=== PATIENT | female | born 1990 | race Caucasian/White ===

== ENCOUNTER 2017-03-08 22:42 | Inpatient (IN) | payer OTHER ==
[~2017-03-08] VITALS: Ht 170.2 cm; Wt 66.8 kg
--- NOTE | ~2017-03-08 | CO ---
Unit #: [id number] #: [id number] Patient: CELIA MONTOYA [id number] [facility] [address] [place], [place] [address] [id number] I MR#: [id number] NAME: CELIA MONTOYA ROOM: 326 Age: 26 Sex: F Admission Date: 03/09/2017 : 1990 Attending Physician: Mason Smyth M.D. Consultation Date: 03/11/2017 CONSULTATION REPORT REASON FOR CONSULTATION History of amphetamine abuse, benzodiazepine, marijuana, opiate abuse, depression, anxiety, and withdrawal symptoms. HISTORY OF PRESENT ILLNESS Ms. Celia Montoya is a 26-year-old white female, seen in room 326, bed 1 on 03/11/2017 at [facility]. The patient was seen for the above-mentioned complaint. The patient reported having lot of problem with the anxiety, withdrawal symptom, trouble sleeping, restlessness of her legs, feeling hot and cold sweats. The patient denied any suicidal or homicidal ideation. The patient was admitted with tricuspid valve endocarditis. PAST PSYCHIATRIC HISTORY Remarkable for history of anxiety and depression. History of substance abuse as mentioned above. PAST MEDICAL HISTORY Remarkable for history of Methicillin-resistant Staphylococcus aureus, tricuspid valve endocarditis, bacteremia, and hepatitis C. MEDICATION HISTORY At home, the patient is on no medication. The patient is currently on vancomycin, loperamide, Ultram, methocarbamol. ALLERGIES To sulfa and penicillin. FAMILY HISTORY AND SOCIAL HISTORY The patient reports that she has a good support system. No history of abuse. History of substance abuse as mentioned above. REVIEW OF SYSTEMS A complete review of systems is unremarkable except as mentioned above. MENTAL STATUS EXAMINATION The patient's vital signs; temperature 97.8, pulse 74, respirations 16, blood pressure 116/86, and oxygen saturation 100%. General appearance; the patient dressed casually, lying comfortably in bed. Attention span and concentration, fair. Speech; regular rate and coherent. Oriented in time, place, and person. Mood and affect; sad, depressed, withdrawn, and anxious. Thought process, coherent. Thought content; the patient denied any suicidal or homicidal ideation. Denied any psychotic symptom. Recent and remote memory, fair. Language, intact. Fund of knowledge, fair. Unit #: [id number] #: [id number] Patient: CELIA MONTOYA Insight and judgment, fair to slightly impaired. DIAGNOSES Psychiatric: Amphetamine use disorder, severe, F15.20; opiate use disorder, severe, F11.20; cannabis abuse disorder, fqqlhhyr-fv-halmlo, F12.20; and major depressive disorder, recurrent, severe, F33.2. Secondary diagnosis: Deferred. Medical diagnosis: Please refer to H and P. Stressors: Psychosocial stressors. ASSESSMENT AND PLAN 1. Supportive psychotherapy and psychoeducation provided to the patient. 2. Educated about benefits and side effects of medication and course and prognosis of illness. 3. Advised to continue with current medication and add Neurontin 300 mg t.i.d., Vistaril 25 mg t.i.d., Requip 1 mg at bedtime, and trazodone 75 mg at bedtime for sleep and withdrawal symptom. We will continue to follow. Please feel free to call if any questions, telephone #[phone]. Dictated by... David Membreno/reuben TD: 03/11/2017 22:36 JOB #: [id number] CONSULTATION REPORT Page 1 of 1 X Ellis Li MD X CONSULTATION REPORT
--- NOTE | ~2017-03-08 | CR72 ---
[facility] A Service of [facility] & [facility] RADIOLOGY TEXT RESULTS PATIENT: ANIKA MONTOYA LOCATION: [facility] 326- : 88 UNIT #: [id number] AGE: [address]: Libra Veliz MD SEX: F ORDER DR: [id number] [facility] [address] [facility]. [place], [place] [address] [id number] I MR#: [id number] Acc #: [id number] NAME: ANIKA MONTOYA : 1990 SEX: F STUDY DATE/TIME: 03/09/2017 00:51 UNIT: [address] ROOM: [facility] STUDY DESCRIPTION: CR Chest Single View Portable Attending Physician: Bia June M.D. Ordering Physician: Dillan Granger M.D. Primary Care Physician: Primary Care Physician No MEDICAL IMAGING REPORT This report is preliminary unless electronic signature is present EXAM Portable chest 03/09/2017 00:51 INDICATION Shortness of air, fever and cough today. FINDINGS AP portable chest was obtained. No comparison. Borderline cardiac enlargement. Soft tissue density over the midchest is presumably overlying soft tissue attenuation. There is questionable soft tissue attenuation in the left mid lung versus some mild infiltrate. No pneumothorax is seen. I would recommend followup exam with PA and lateral views of the chest with the patient's bra removed. Dictated by... Wilner Lambert Jr., M.D. THIS IS AN ELECTRONICALLY VERIFIED REPORT Wilner Lambert Jr., M.D. at 03/09/2017 7:18 PM RONI/young TD: 03/09/2017 06:20 JOB #: [id number] MEDICAL IMAGING REPORT Page 1 of 1 COPY
--- NOTE | ~2017-03-08 | CT57 ---
[facility] A Service of [facility] & [facility] RADIOLOGY TEXT RESULTS PATIENT: ANIKA MONTOYA LOCATION: [facility] 326-01 : [birth year] UNIT #: [id number] AGE: [address]: Libra Veliz MD SEX: F ORDER DR: [id number] [facility]. [place], [place] [address] [id number] I MR#: [id number] Acc #: [id number] NAME: ANIKA MONTOYA : 1990 SEX: F STUDY DATE/TIME: 03/10/2017 [facility]: [facility] STUDY DESCRIPTION: CT Chest Wo Cont Attending Physician: Mason Smyth M.D. Ordering Physician: Mason Smyth M.D. Primary Care Physician: Primary Care Physician No MEDICAL IMAGING REPORT This report is preliminary unless electronic signature is present EXAM CT chest without contrast 03/10/2017 1045 hours HISTORY 26-year-old woman complaining of chest pain, lethargy, weakness since 03/08/2017. History of cardiac disease, drug abuse. COMPARISON Chest x-ray 03/09/2017. This CT exam was performed with one or more of the following radiation dose reduction techniques: automatic exposure control, adjustment of mA and/or kV according to patient size, and iterative reconstruction. FINDINGS Images through the thoracic inlet demonstrate a mildly enlarged heterogeneous thyroid gland suggesting a multinodular goiter. Correlate with clinical symptoms. Consider followup ultrasound if warranted. Images through the chest demonstrate normal caliber aorta. There is motion artifact. Cardiac chambers and pericardium appear normal. The esophagus is unremarkable. There are small dependent bilateral pleural effusions in both lungs. There is airspace density left greater than right lung base which could represent pneumonia or atelectasis. There are patchy nodular densities in the lingular segment of the left upper lobe on image 32 measuring less than 1 cm. There is vague linear to nodular density in the right middle lobe also quite small. Findings could represent infection. No definite septic emboli are seen. Limited views through the upper abdomen demonstrate no focal liver or splenic lesions. The gallbladder is contracted and only partially imaged STS. [facility] A Service of [facility] & [facility] RADIOLOGY TEXT RESULTS PATIENT: ANIKA MONTOYA LOCATION: [facility] 326-01 : [birth year] UNIT #: [id number] AGE: [address]: Libra Veliz MD SEX: F ORDER DR: on this exam. No definite stones are seen. The gallbladder wall appears thickened likely due to its contracted state. Bone window images are negative. IMPRESSION 1. The exam is limited by the lack of intravenous contrast and respiratory motion. 2. There is small dependent bilateral pleural effusions. 3. There is bilateral airspace change left greater than right lower lobes. Findings could represent pneumonia or atelectasis. There are a few small less than 1 cm vague nodular areas in the lingula in the right middle lobe. Infection is favored. 4. No pericardial fluid. 5. Limited views through the upper abdomen demonstrate no definite acute abnormalities. The gallbladder is contracted and appears thick-walled. It is incompletely imaged. The appearance is most likely related to the contracted state. If there are any symptoms in the right upper quadrant ultrasound evaluation would be recommended. Dictated by... Tammy Bright M.D. THIS IS AN ELECTRONICALLY VERIFIED REPORT Tammy Bright M.D. at 03/10/2017 2:25 PM Parul TD: 03/10/2017 12:39 JOB #: [id number] MEDICAL IMAGING REPORT Page 1 of 1 COPY
--- NOTE | ~2017-03-08 | DS ---
Unit #: [id number] #: [id number] Patient: ANIKA MONTOYA [id number] [address] [address] [id number] I MR#: [id number] NAME: ANIKA MONTOYA ROOM: 326 Age: 26 Sex: F Admission Date: 03/09/2017 : 1990 Discharge Date: 03/14/2017 Attending Physician: Libra Veliz M.D. Primary Care Physician: No Primary Care Physician DISCHARGE SUMMARY PRINCIPAL DIAGNOSES 1. Sepsis secondary to methicillin sensitive Staph aureus tricuspid valve endocarditis. 2. Bibasilar septic pulmonary emboli, presumed methicillin sensitive Staph aureus. 3. Acute heroin withdrawal. 4. Polysubstance abuse with urine drug screen positive for benzodiazepines, amphetamines, opiates and TCAs. 5. Normocytic anemia. 6. Moderate protein malnutrition. 7. Mild systolic congestive heart failure with ejection fraction of 45% to 50%. No acute exacerbations. 8. Medical noncompliance. 9. Moderate to severe tricuspid regurgitation. CONSULTANTS Dr. Gustafson - Infections Disease. PROCEDURES 1. Two dimensional echocardiogram on March 10, 2017 with an EF of 45% to 50%. Generalized hypokinesis of the left ventricle noted. Normal diastolic filling pattern. Mildly enlarged right ventricular cavity with mildly reduced right ventricular function. Moderate to severe tricuspid regurgitation. Right ventricular systolic pressure is 36 mmHg. Moderate size non-mobile vegetation of the anterior leaflet of the tricuspid valve. 2. Chest x-ray on March 09, 2017. Soft tissue attenuation in the left mid lung versus infiltrate. 3. CT of the chest without contrast on March 10, 2017, with small dependent bilateral pleural effusions. There is bilateral airspace change, left greater than right lower lobe. Less than 1 cm vague nodular areas in the lingula, the right middle lobe concerning for pneumonia. 4. MRI of lumbar spine with and without contrast on March 11, 2017, without evidence of diskitis, osteomyelitis or epidural abscess with degenerative changes at L5-S1 and L4-L5. At L5-S1 there is moderate size extrusion with mass effect on the right greater than left lateral recess and canal stenosis. CLINICAL HISTORY/HOSPITAL COURSE Ms. Montoya is a 26-year-old female with a known history of endocarditis who presents back to our emergency department with left sided chest discomfort, nausea, vomiting, fevers, sweats and chills. She does have a cough. Chest x-ray reveals questionable pneumonia and CT scan of Unit #: [id number] #: [id number] Patient: ANIKA MONTOYA the chest with concerns of what appeared to be sepsis and pulmonary emboli. The patient was subsequently admitted. Blood cultures were then drawn and ultimately revealed methicillin sensitive Staph aureus. Two dimensional echocardiogram was also done revealing known tricuspid valve endocarditis for which patient received only partial treatment on an outpatient basis. Dr. Gustafson was consulted and the patient was maintained on appropriate antibiotics. Repeat blood culture from March 12 has remained negative. The patient's associated leukocytosis and tachycardia has resolved. She will continue Rocephin on an outpatient basis as outlined below. The patient did have some acute heroin withdrawal for which Dr. Li evaluated the patient and placed her on withdrawal protocol. This has resolved and I don't think she requires these medications on an outpatient basis. The patient was offered [facility] but she is currently refusing at this point. She will be discharged home today. DISCHARGE CONDITION Stable. DISCHARGE STATUS Discharge to home with plans for outpatient IV or IM antibiotics via short stay. DISCHARGE MEDICATIONS Rocephin 2 g IV or IM q.24 hours through April 23, 2017. DISCHARGE INSTRUCTIONS The patient was instructed to follow a regular diet, to refrain from further illicit drug use and/or tobacco use. She can increase her activity as tolerated. FOLLOWUP The patient needs followup BMP and CBC done on Mondays with results faxed to Dr. Gustafson while she is on IV and/or IM Rocephin. She should follow up in the transition clinic in approximately six weeks. Dictated by... Libra Veliz M.D. [facility]/delicia TD: 03/15/2017 11:19 JOB #: [id number] Unit #: [id number] #: [id number] Patient: ANIKA MONTOYA DISCHARGE SUMMARY Page 1 of 1 X Libra Veliz MD DISCHARGE SUMMARY
--- NOTE | ~2017-03-08 | HP ---
Unit #: [id number] #: [id number] Patient: ANIKA MONTOYA [id number] [address] [address] [id number] I MR#: [id number] NAME: ANIKA MONTOYA ROOM: 326 Age: 26 Sex: F Admission Date: 03/09/2017 : 1990 Attending Physician: Bia June M.D. Primary Care Physician: No Primary Care Physician HISTORY AND PHYSICAL CHIEF COMPLAINT Methicillin sensitive aureus tricuspid valve bacterial endocarditis with partial treatment. HISTORY This 26-year-old female, with a history of IV drug abuse, hepatitis C, is admitted for tricuspid valve endocarditis. The patient was diagnosed with methicillin sensitive Staph aureus tricuspid valve endocarditis at [facility] about three to four weeks ago. Left AMA. Was then incarcerated. Went back to [facility] 03/05/2017 for treatment. Apparently, the cultures were positive to clindamycin. The patient has an allergy to sulfa and penicillin; therefore, she was treated with IV clindamycin but I believe she left after a day or two AMA. States that over the past day she has developed left localized chest discomfort with nausea, vomiting, fever, sweats, chills. She also has a cough productive of green sputum. She presented to this emergency department afebrile with stable vital signs. She was cultured, given 2 L of saline, Zofran, Toradol, vancomycin and gentamicin. PAST MEDICAL HISTORY 1. Methicillin Staph aureus tricuspid valve endocarditis/bacteremia, admitted to [facility] about a month ago and then recently to [facility]. Please see above details. 2. Hepatitis C. 3. Admission to this facility 09/2016 for right arm cellulitis and phlebitis. 4. Excision of a tumor right ear. 5. BTL. ALLERGIES Sulfa and penicillin. HOME MEDICATIONS None. FAMILY HISTORY Diabetes. SOCIAL HISTORY The patient is somewhat homeless at present but she plans to return to her mother's home when she is clean and sober again. She smokes one half pack per day of tobacco. Does inject methamphetamines and heroin. Unit #: [id number] #: [id number] Patient: ANIKA MONTOYA REVIEW OF SYSTEMS Notable for localized tenderness left chest, cellulitis, endocarditis, hepatitis C, drug abuse, above mentioned surgeries. All other systems were reviewed and otherwise negative. PHYSICAL EXAMINATION GENERAL APPEARANCE: Pleasant, thin 26-year-old female, currently in no acute distress. VITAL SIGNS: Temperature 98.9, pulse 98, respirations 21, blood pressure 134/71. O2 saturation is 97% on room air. HEENT: Eyes PERRLA. Extraocular muscles are intact. Pharynx is benign with poor dentition. NECK: Supple without adenopathy or thyromegaly. Right TM looks to be fairly clear. CHEST: Clear. There is a localized tender subcutaneous nodule left lower chest which does not look to be red or infected. ABDOMEN: Bowel sounds are present. No hepatosplenomegaly, tenderness or masses. EXTREMITIES: Without edema. Pedal pulses are present. No splinter hemorrhages noted over the fingernail beds. DIAGNOSTIC STUDIES LABORATORY: Admission labs - hematocrit is 34.3, white blood count of 16.3, normal platelet count. One band noted. SMA-12 - glucose is 167, sodium 133, potassium 3.4, calcium 7.8, albumin 2.5, AST 66, ALT 117. Lactic acid 2.7. CARDIOVASCULAR: EKG - sinus tachycardia, rate 107. IMAGING: Chest x-ray - soft tissue density left chest, questionable atelectasis versus infiltrate left lung. Needs PA and lateral chest x-ray after bra is removed. ASSESSMENT 1. Methicillin sensitive Staph aureus tricuspid valve bacterial endocarditis, partially treated over the past month as patient left [facility]. Was last on clindamycin due to a penicillin allergy. 2. Polysubstance abuse using methamphetamines and heroin. 3. Hepatitis C with transaminitis. 4. Tender area subcutaneous tissue left chest nodule. PLANS 1. Blood cultures are pending. 2. Empiric antibiotics in the form of vancomycin and cefepime. Will monitor while cefepime is administered. 3. Obtain prior blood cultures from [facility]. 4. Medications for withdrawal. 5. Infectious disease to see. 6. Social work to see. Dictated by Bia June M.D. AML/df Unit #: [id number] #: [id number] Patient: ANIKA MONTOYA TD: 03/09/2017 05:20 JOB #: [id number] HISTORY AND PHYSICAL Page 1 of 1 X Bia June MD HISTORY AND PHYSICAL
--- NOTE | ~2017-03-08 | CO ---
Unit #: [id number] #: [id number] Patient: CELIA MONTOYA [id number] [place], [place] [address] [id number] I MR#: [id number] NAME: CELIA MONTOYA ROOM: 326 Age: 26 Sex: F Admission Date: 03/09/2017 : 1990 Attending Physician: Mason Smyth M.D. Primary Care Physician: Primary Care Physician No Consultation Date: 03/12/2017 CONSULTATION REPORT REASON FOR CONSULTATION Followup. DISCUSSION Ms. Celia Montoya is a 26-year-old female, seen in room 326, bed 1 on 03/12/2017 at [facility]. The patient diagnosed with endocarditis, reports medication is helping her. The patient was started on medication for anxiety withdrawals. The patient reports able to sleep good. Denied any suicidal or homicidal ideation. Denied any psychotic symptom. Reported decrease in restlessness. The patient was able to sleep good, compliant, cooperative. Vital signs; temperature 98.2, pulse 67, respirations 20, blood pressure 129/89, oxygen saturation 99%. MENTAL STATUS EXAMINATION General appearance; the patient dressed casually, lying comfortably in bed. Attention span and concentration, fair. Speech, regular rate and coherent. Oriented in time, place, and person. Mood and affect were labile. Thought process, coherent. Thought content, the patient denied any thoughts of harming self or others or any hallucination. Recent and remote memory, fair. Language, intact. Fund of knowledge, fair. Insight and judgment, fair to slightly impaired. DIAGNOSES Psychiatric: Opioid use disorder, severe, F11.20; amphetamine use disorder, severe, F15.20; cannabis abuse disorder, moderate, F12.20; major depressive disorder, recurrent, severe, F33.2. ASSESSMENT/PLAN 1. Supportive psychotherapy and psychoeducation provided to the patient. 2. Educated about benefits and side effects of medication and course and prognosis of illness. 3. Advised to continue with current medication. If needed, consider further adjustment of medication. Please feel free to call if any questions telephone #[phone]. Dictated by... Ellis Li M.D. DAMASO/reuben TD: 03/12/2017 21:39 JOB #: [id number] Unit #: [id number] #: [id number] Patient: CELIA MONTOYA CONSULTATION REPORT Page 1 of 1 X Ellis Li MD CONSULTATION REPORT
--- NOTE | ~2017-03-08 | MR112 ---
[facility] A Service of [facility] & [facility] RADIOLOGY TEXT RESULTS PATIENT: ANIKA MONTOYA LOCATION: [facility] 326-01 : [birth year] UNIT #: [id number] AGE: [address]: Libra Veliz MD SEX: F ORDER DR: [id number] [facility] [address] [facility] [place], [place] [address] [id number] I MR#: [id number] Acc #: [id number] NAME: ANIKA MONTOYA : 1990 SEX: F STUDY DATE/TIME: 03/11/2017 10:56 UNIT: [address] ROOM: [facility] STUDY DESCRIPTION: MR Lumbar WWo Contrast Attending Physician: Libra Veliz M.D. Ordering Physician: Otto Gustafson M.D. Primary Care Physician: No Primary Care Physician MRI CENTER REPORT This report is preliminary unless electronic signature is present. EXAM MRI of the lumbar spine with and without. HISTORY Weakness, endocarditis, left [facility] AMA yesterday and feels worse today. History of drug abuse. Concern for abscess with development of low back pain and weakness. Endocarditis and weakness started 03/08/2017 FINDINGS MRI of the lumbar spine performed prior to and following intravenous administration of 14 mL of MultiHance. 1.5T system utilized. Wet reading provided by Dr. Ben Cheng 1935 on 03/11/2017. No comparison. Subtle retrolisthesis of L5 on S1 secondary to loss of intervertebral disc height. The 4-5 and 5-1 discs are desiccated. The conus medullaris terminates at L1 level and is normal. There are tiny Schmorl nodes L1-2 level. There is nothing to suggest osteomyelitis or diskitis and following contrast administration, there is nothing to suggest epidural abscess. There is no pathologic intracanalicular enhancement. Marrow signal intensity is essentially unremarkable. At L1-2, no significant abnormality. At L2-3, mild bilateral facet degenerative change. No canal or foraminal impingement. At L3-4, moderate bilateral facet degenerative change. No canal or foraminal impingement. At L4-5, at least moderate bilateral facet degenerative change with a broad-based posterior protrusion more prominent to the left than the right of midline and resulting in mild canal stenosis with mass effect on left greater than right lateral recess expected location of the L5 roots. [facility] A Service of [facility] & [facility] RADIOLOGY TEXT RESULTS PATIENT: ANIKA MONTOYA LOCATION: [facility] 326-01 : [birth year] UNIT #: [id number] AGE: [address]: Libra Veliz MD SEX: F ORDER DR: There is no significant foraminal impingement. At L5-S1, there is approximately cxzg-at-ckrceacu facet degenerative change bilaterally with mild ligamentum flavum thickening. There is a moderate-sized extrusion central to right paramedian in location remaining contiguous with the disc. It results in mass effect on right greater than left lateral recess expected location of the S1 roots and contributes to mild to moderate canal stenosis. The extrusion measures about 1.3 cm SI dimension, 0.7 cm AP dimension, and 1.4 cm ML dimension. No drainable fluid collection is suspected. IMPRESSION 1. There is no evidence for diskitis, osteomyelitis, or epidural abscess formation. No pathologic intracanalicular enhancement is appreciated in the lumbar spine. 2. There are lumbar degenerative changes most significant appearing radiographically L5-S1, to a lesser extent L4-5. At the 5-1 level, there is a moderate-sized extrusion with mass effect on the right greater than left lateral recess and canal stenosis with measurements and details provided above. Milder disease at the 4-5 level. STAT * RESULT Dictated by... Adelaide Moore M.D. THIS IS AN ELECTRONICALLY VERIFIED REPORT Adelaide Moore M.D. at 03/13/2017 12:28 PM FLETCHER/suzi TD: 03/13/2017 09:59 JOB #: [id number] MRI CENTER REPORT Page 1 of 1 COPY
--- NOTE | ~2017-03-08 | EKG ---
PATIENT: ANIKA MONTOYA UNIT #: [id number] Ventricular Rate: 107 BPM Atrial Rate: 107 BPM P-R Interval: 128 ms QRS Duration: 76 ms Q-T Interval: 308 ms QTC Calculation(Bezet): 411 ms P Oracle: 84 degrees Calculated R Oracle: 177 degrees Calculated T Oracle: 74 degrees Diagnosis Line: Sinus tachycardia Diagnosis Line: Indeterminate axis Diagnosis Line: Nonspecific ST abnormality Diagnosis Line: Abnormal ECG Diagnosis Line: When compared with ECG of 09-FEB-2016 06:42, Diagnosis Line: Criteria for Anterior infarct are no longer Diagnosis Line: Present Diagnosis Line: Confirmed by AUTUMN ABBOTT MD ([id number]) on Diagnosis Line: 03/09/2017 1:33:26 PM INTERPRETING MD: MILENA PAUL
--- NOTE | ~2017-03-08 | CO ---
Unit #: [id number] #: [id number] Patient: CELIA MONTOYA [id number] [facility] [address] [place], [place] [address] [id number] I MR#: [id number] NAME: CELIA MONTOYA ROOM: 326 Age: 26 Sex: F Admission Date: 03/09/2017 : 1990 Attending Physician: Libra Veliz M.D. Consultation Date: 03/13/2017 CONSULTATION REPORT REASON FOR CONSULTATION Followup. DISCUSSION Ms. Celia Montoya is a 26-year-old white female, seen in room 326, bed 1 on 03/13/2017 at [facility]. The patient diagnosed with endocarditis, history of opioid abuse, amphetamine abuse, marijuana abuse, depression, and anxiety. The patient reports making progress. Sleeping good. Decrease in anxiety. The patient was somewhat guarded, paranoid, but denied any thoughts of harming self or others. The patient denied any side effects from medication. The patient's vital signs; temperature 98.9, pulse 86, respirations 18, blood pressure 197/62, oxygen saturation 99%. REVIEW OF SYSTEMS Complete review of systems unremarkable. MENTAL STATUS EXAMINATION General appearance, the patient dressed in hospital attire, lying comfortably in bed. Attention span and concentration, fair. Speech, regular rate and coherent, but slow in volume. Oriented in time, place, and person. Mood and affect were sad, dysphoric, anxious. Thought process, coherent and goal directed. Thought content, the patient denied any hallucination or any thoughts of harming self or others. Recent and remote memory, fair. Language, intact. Fund of knowledge, fair. Insight and judgment, fair to slightly impaired. DIAGNOSES Psychiatric: Opiate use disorder, severe, F11.20; amphetamine use disorder, severe, F15.20; cannabis abuse disorder, moderate, F12.20; major depressive disorder, recurrent, severe, F33.2. ASSESSMENT AND PLAN 1. Supportive psychotherapy and psychoeducation provided to the patient. 2. Educated about benefits and side effects of medication and course and prognosis of illness. 3. Advised to continue with current medication. If needed, consider further adjustment of medication. Please feel free to call if any questions, telephone #[phone]. Dictated by... Ellis Li M.D. Unit #: [id number] #: [id number] Patient: CELIA MONTOYA DAMASO/reuben TD: 03/13/2017 16:54 JOB #: [id number] CONSULTATION REPORT Page 1 of 1 X Ellis Li MD CONSULTATION REPORT
--- NOTE | ~2017-03-08 | CO ---
Unit #: [id number] #: [id number] Patient: ANIKA JONES [id number] [address] [address] [id number] I MR#: [id number] NAME: ANIKA JONES ROOM: 326 Age: 26 Sex: F Admission Date: 03/09/2017 : 1990 Attending Physician: Mason Smyth M.D. Primary Care Physician: No Primary Care Physician CONSULTATION REPORT REQUESTING PHYSICIAN Dr. June REASON FOR CONSULTATION MSSA infective endocarditis. HISTORY OF PRESENT ILLNESS Much of the information was provided from the chart as well as previous discharge summary from [facility] since patient is unable to provide much information. Ms. Jones is a 26-year-old female with a history of IV drug use, hepatitis C, who was admitted for complaints of continued chest pain for about four days. Per records, it appears that she was being treated at [facility] for MSSA endocarditis. Apparently, per the note she was on clindamycin but she had later left about two days later. I spoke with [facility] microbiology lab. Blood cultures from March 01 and March 02 are both positive, two of two sets, with MSSA. She returns now for complaints of chest pains, nausea, fevers, vomiting, productive cough. She is currently on vancomycin and cefepime and was given a dose of gent as well. PAST MEDICAL HISTORY 1. MSSA tricuspid valve endocarditis bacteremia, previously admitted to [facility] and had left AMA. 2. Hepatitis C. 3. History of arm cellulitis and phlebitis. 4. 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 ALLERGIES Sulfa and penicillin. Per patient, her reaction to penicillin is hives. HOME MEDICATIONS None. FAMILY HISTORY Diabetes. SOCIAL HISTORY The patient is currently homeless and she is a smoker as well as current IV methamphetamines and heroin user. REVIEW OF SYSTEMS All negative except for those stated in HPI. PHYSICAL EXAMINATION Unit #: [id number] #: [id number] Patient: ANIKA JONES GENERAL: Resting, lying in bed, currently in no distress. CURRENT VITAL SIGNS: Temperature 98.8, heart rate 103, respirations 18, blood pressure 98/63. HEENT: JAZZY. Normocephalic. Poor dentition. NECK: Supple. Clear to auscultation, nonlabored. ABDOMEN: Soft, nontender, positive bowel sounds. CARDIOVASCULAR: Regular rate. No edema. DIAGNOSTIC STUDIES LABORATORY: Creatinine 0.7, sodium 133, potassium 3.4, AST 66, ALT 112. Hematology - white count is 16.3, hemoglobin 11.1, platelets 248. Microbiology data - blood cultures are currently pending. IMAGING: Chest x-ray - soft tissue density over the mid chest is presumably overlying soft tissue attenuation. Some questionable soft tissue attenuation in the left mid lung versus some mild infiltrate. ASSESSMENT 1. MSSA tricuspid valve endocarditis. 2. Noncompliance. 3. IV drug user. PLANS At this point, will await further blood cultures. Will continue vancomycin. Will monitor while on cefepime closely. Currently, patient is tolerating cefepime with no problems. May be able to DC if no further positive cultures. May need a 2D echo. Will review labs from further workup from [facility]. We will discuss plan with MD. Currently, patient is clinically stable. Will continue to follow along with the patient. Dictated by... Christy Espinosa APRN for David Winston TD: 03/09/2017 10:25 JOB #: [id number] CONSULTATION REPORT Page 1 of 1 X X CONSULTATION REPORT
--- NOTE | ~2017-03-08 | CO ---
Unit #: [id number] #: [id number] Patient: CELIA MONTOYA [id number] [place], [place] [address] [id number] I MR#: [id number] NAME: CELIA MONTOYA ROOM: 326 Age: 26 Sex: F Admission Date: 03/09/2017 : 1990 Attending Physician: Libra Veliz M.D. Primary Care Physician: No Primary Care Physician Consultation Date: 03/14/2017 CONSULTATION REPORT REASON FOR CONSULTATION Followup. DISCUSSION Ms. Celia Montoya is a 26-year-old female seen in room 326 bed-1 on 03/14/17 at [facility]. Patient diagnosed with endocarditis. Has a history of opiate abuse, cannabis abuse and patient reports medication is helping her. Patient reports that she would like to followup in outpatient program. Patient denied any suicidal or homicidal ideation, denied any psychotic symptom. Vital signs - 99.3, 104, 18, blood pressure 95/64. Oxygen saturation 100%. MENTAL STATUS EXAMINATION GENERAL APPEARANCE: Patient dressed casually, lying comfortably in bed. Attention span and concentration fair. Speech - regular rate, coherent. Oriented in time, place and person. Mood and affect sad, dysphoric. Thought process coherent. Thought content - patient denied any suicidal or homicidal ideation, denied any psychotic symptoms. Recent and remote memory fair. Language intact. Fund of knowledge fair. Insight and judgment fair to slightly impaired. DIAGNOSIS PSYCHIATRIC: 1. Opiate use disorder, severe - F11.20. 2. Cannabis abuse disorder, moderate - F12.20. 3. Major depressive disorder, recurrent, severe - F33.0. ASSESSMENT/PLAN 1. Supportive psychotherapy and psychoeducation provided to patient. 2. Educated about benefits and side effects of medications and course and prognosis of illness. 3. Advised to continue with current medications. If needed, consider further additional medication and advised patient to follow up in [facility] program upon discharge. Patient was given Crisis Line number - [phone]. Dictated by... Ellis Li M.D. Unit #: [id number] #: [id number] Patient: CELIA MONTOYA DAMASO/delicia TD: 03/16/2017 07:19 JOB #: [id number] CONSULTATION REPORT Page 1 of 1 X Ellis Li MD CONSULTATION REPORT
[~2017-03-08 22:42] MED LIST: AUGMENTIN875 M1 PO; BACTRIM DS TABL1 TA1 PO; BACTROBAN15 GM TOP; BAYER CHEWABLE81 MG PO; COCAINE; MACROBID100 MG PO; METHAMPHETAMINE; NO MEDICATIONS; PRENATAL1 TA1 PO; PYRIDIUM PO
[2017-03-08 23:46] LABS: BASOPHIL% 0.2 % (0-2.5); DIFF IND YES; EOSINOPHIL# 0.2 X10e3 (0-0.7); HEMATOCRIT 34.3 % (35.0-45.0); HEMOGLOBIN 11.1 gm/dL (12.0-16.0); LYMPHOCYTE% 12.3 % (17.0-45.0); MEAN CELL VOLUME 81.1 FL (83-96); MEAN CORPUSCULAR HEMOGLOBIN 26.2 PG (28-34); MEAN CORPUSCULAR HGB CONC 32.3 g/dL (30-36); MEAN PLATELET VOLUME 6.4 FL (6.5-11.5); MONOCYTE# 0.7 X10e3 (0-1.0); MONOCYTE% 4.4 % (3.0-12.0); NEUTROPHIL# 13.3 X10e3 (1.5-7.1); NEUTROPHIL% 82.1 % (40-75); PLATELET COUNT 248 X10e3 (140-420); RED BLOOD COUNT 4.23 X10e (3.90-5.30); RED CELL DISTRIBUTION WIDTH 16.1 % (11.0-15.5); WHITE BLOOD COUNT 16.3 X10e3 (4.0-10.5)
[2017-03-08 23:52] LABS: POC - CKMB <1.0 ng/mL (0.0-7.9); POC - TROPONIN <0.05 ng/mL (<=0.05)
[2017-03-09 00:03] LABS: ALBUMIN SERUM 2.5 g/dL (3.5-5.0); BILIRUBIN, DIRECT 0.1 mg/dL (0.0-0.2); BILIRUBIN,INDIRECT 0.4 mg/dL (0.0-0.9); BILIRUBIN,TOTAL 0.5 mg/dL (0.2-2.0); CALCIUM SERUM 7.8 mg/dL (8.4-10.2); CREATININE SERUM 0.7 mg/dL (0.6-1.4); GLOM FILT RATE Estimated 117.9 mL/min (>60); POTASSIUM 3.4 mmol/L (3.5-5.1); PROTEIN TOTAL SERUM 6.3 g/dL (6.0-8.3)
[2017-03-09 00:06] LABS: ANISOCYTOSIS MOD; PLATELET ESTIMATE INCREASED (NORMAL)
[2017-03-09 00:07] LABS: HYPOCHROMIA SL
[2017-03-09 12:40] LABS: URINE SOURCE CLEAN CATCH
[2017-03-09 13:10] LABS: URINE APPEARANCE CLEAR; URINE BILIRUBIN NEG (NEG); URINE BLOOD TRACE (NEG); URINE COLOR YELLOW; URINE GLUCOSE NEG (NEG); URINE KETONE NEG (NEG); URINE LEUKOCYTE ESTERASE NEG (NEG); URINE NITRATE NEG (NEG); URINE PROTEIN NEG (NEG)
[2017-03-09 13:12] LABS: U HYALINE CASTS AUWI 0-2 /[LPF]; URBCS1 AUWI 0-2 /[HPF] (0-2); URINE BACTERIA AUWI NEG (NEGATIVE); URINE SQUAMOUS EPITHELIAL CELL OCC /[HPF]
[2017-03-09 13:13] LABS: CULTURE INDICATED? NO
[2017-03-10 05:35] LABS: HEMATOCRIT 28.2 % (35.0-45.0); HEMOGLOBIN 9.6 gm/dL (12.0-16.0); MEAN CORPUSCULAR HEMOGLOBIN 27.6 PG (28-34); MEAN CORPUSCULAR HGB CONC 34.1 g/dL (30-36); MEAN PLATELET VOLUME 6.2 FL (6.5-11.5); RED BLOOD COUNT 3.48 X10e (3.90-5.30); RED CELL DISTRIBUTION WIDTH 16.5 % (11.0-15.5); WHITE BLOOD COUNT 8.3 X10e3 (4.0-10.5)
[2017-03-10 06:18] LABS: CALCIUM SERUM 7.9 mg/dL (8.4-10.2); CREATININE SERUM 0.5 mg/dL (0.6-1.4); GLOM FILT RATE Estimated 131.7 mL/min (>60); MAGNESIUM 1.8 mg/dL (1.6-3.0)
[2017-03-11 10:48] LABS: HEMATOCRIT 29.6 % (35.0-45.0); HEMOGLOBIN 9.9 gm/dL (12.0-16.0); MEAN CORPUSCULAR HEMOGLOBIN 26.8 PG (28-34); MEAN CORPUSCULAR HGB CONC 33.5 g/dL (30-36); MEAN PLATELET VOLUME 6.2 FL (6.5-11.5); RED BLOOD COUNT 3.7 X10e (3.90-5.30); WHITE BLOOD COUNT 8.2 X10e3 (4.0-10.5)
[2017-03-11 11:44] LABS: BUN/CREATININE RATIO 8.57; CALCIUM SERUM 7.9 mg/dL (8.4-10.2); CREATININE SERUM 0.7 mg/dL (0.6-1.4); GLOM FILT RATE Estimated 117.9 mL/min (>60); POTASSIUM 3.8 mmol/L (3.5-5.1)
[2017-03-12 07:32] LABS: BASOPHIL% 0.4 % (0-2.5); EOSINOPHIL# 0.4 X10e3 (0-0.7); EOSINOPHIL% 4.8 % (0.0-7.0); HEMATOCRIT 29.3 % (35.0-45.0); HEMOGLOBIN 9.8 gm/dL (12.0-16.0); LYMPHOCYTE% 37.8 % (17.0-45.0); MEAN CELL VOLUME 79.9 FL (83-96); MEAN CORPUSCULAR HEMOGLOBIN 26.6 PG (28-34); MEAN CORPUSCULAR HGB CONC 33.4 g/dL (30-36); MONOCYTE# 0.7 X10e3 (0-1.0); MONOCYTE% 8.3 % (3.0-12.0); NEUTROPHIL# 3.9 X10e3 (1.5-7.1); NEUTROPHIL% 48.7 % (40-75); PLATELET COUNT 200 X10e3 (140-420); RED BLOOD COUNT 3.67 X10e (3.90-5.30); RED CELL DISTRIBUTION WIDTH 16.2 % (11.0-15.5); WHITE BLOOD COUNT 7.9 X10e3 (4.0-10.5)
[2017-03-12 07:35] LABS: DIFF IND NO
[2017-03-12 08:29] LABS: CREATININE SERUM 0.5 mg/dL (0.6-1.4); GLOM FILT RATE Estimated 131.7 mL/min (>60); POTASSIUM 4.5 mmol/L (3.5-5.1)
[2017-03-14] MEDS ORDERED: ROCEPHIN10 GM IV (12:43)
== END 2017-03-14 13:53 | disposition home or self-care (01) | DRG 871 ==
LOC: CED 22:42 → C3A PCU 03-09 02:20 → CEDOF 03-09 02:20 → CED 03-09 02:29 → C3A PCU 03-09 04:35 → CEDOF 03-09 04:35 → C3A PCU 03-09 08:17
PROVIDERS: Emergency Medicine; Internal Medicine
PROC: B24BYZZ Ultrasonography of Heart with Aorta using Other Contrast (ICD-10-PCS; principal; 2017-03-10)
DX: A41.01 Sepsis due to Methicillin susceptible Staphylococcus aureus (principal); I33.0 Acute and subacute infective endocarditis; I26.90 Septic pulmonary embolism without acute cor pulmonale; F33.2 Major depressive disorder, recurrent severe without psychotic features; E44.0 Moderate protein-calorie malnutrition; F15.20 Other stimulant dependence, uncomplicated; I07.1 Rheumatic tricuspid insufficiency; F11.23 Opioid dependence with withdrawal; I50.22 Chronic systolic (congestive) heart failure; B95.61 Methicillin susceptible Staphylococcus aureus infection as the cause of diseases classified elsewhere; B19.20 Unspecified viral hepatitis C without hepatic coma; Z88.0 Allergy status to penicillin; Z88.2 Allergy status to sulfonamides; Z98.51 Tubal ligation status; Z59.0 Homelessness; Z91.19 Patient's noncompliance with other medical treatment and regimen; F12.20 Cannabis dependence, uncomplicated; D64.9 Anemia, unspecified
CPT/HCPCS: 36415; 71010; 71250; 72158; 80048; 80076; 80202; 81003; 82553; 83540; 83605; 83735; 84484; 84703; 85025; 85027; 86592; 87040; 87077; 87186; 87806; 93005; 93306; 96361; 96374; 96375; 99285; A9577; J0690; J0692; J1580; J1885; J2405; J2550; J3370

== ENCOUNTER 2017-03-19 14:04 | Inpatient (IN) | payer OTHER ==
[~2017-03-19] VITALS: Ht 162.6 cm; Wt 69.2 kg
--- NOTE | ~2017-03-19 | CO ---
Unit #: [id number] #: [id number] Patient: CELIA MONTOYA [id number] [address] [place], [place] [address] [id number] I MR#: [id number] NAME: CELIA MONTOYA. ROOM: 567 Age: 26 Sex: F Admission Date: 03/19/2017 : 1990 Attending Physician: Libra Veliz M.D. Primary Care Physician: Primary Care Physician No Consultation Date: 03/22/2017 CONSULTATION REPORT REASON FOR CONSULTATION Followup. DISCUSSION Ms. Celia Montoya is a 26-year-old white female, seen in room 567, bed 1, on 03/22/2017. The patient was withdrawn, isolative, flat affect. Dressed in hospital attire. The patient does not want to go to any rehab program requiring at least 8 weeks of antibiotic IV treatment for endocarditis. The patient denied any suicidal or homicidal ideation, but sad, depressed, withdrawn, isolative. Vital signs; temperature 97.8, pulse 95, respirations 18, blood pressure 106/69, and oxygen saturation 95%. REVIEW OF SYSTEMS Complete review of system is unremarkable. MENTAL STATUS EXAMINATION General appearance, the patient dressed casually in hospital attire. Attention span and concentration, poor. Speech, slow in volume. Oriented in time, place, and person. Mood and affect; sad, depressed, anxious. Thought process, coherent. Thought content, the patient denied any thoughts of harming self or others, but somewhat guarded. Recent and remote memory, fair. Language, intact. Fund of knowledge, fair. Insight and judgment, fair to slightly impaired. DIAGNOSES Opiate use disorder, severe, F11.20; cannabis abuse disorder, moderate, F12.20; major depressive disorder, recurrent, severe, F33.2. ASSESSMENT AND PLAN 1. Supportive psychotherapy and psychoeducation provided to the patient. 2. Educated about benefits and side effects of medication and course and prognosis of illness. 3. Advised to continue with current treatment and make further adjustment of medication if needed. Recommending the patient to follow up in 30-day rehab program, but the patient is refusing. Please feel free to call if any questions, telephone #[phone]. Dictated by... EllisDavid Murphy/reuben Unit #: [id number] #: [id number] Patient: CELIA MONTOYA TD: 03/23/2017 18:07 JOB #: [id number] CONSULTATION REPORT Page 1 of 1 X Ellis Li MD CONSULTATION REPORT
--- NOTE | ~2017-03-19 | DS ---
Unit #: [id number] #: [id number] Patient: ANIKA MONTOYA [id number] [address] [place], [place] [address] [id number] I MR#: [id number] NAME: ANIKA MONTOYA ROOM: 56 Age: 26 Sex: F Admission Date: 03/19/2017 : 1990 Discharge Date: 03/22/2017 Attending Physician: Libra Veliz M.D. Primary Care Physician: Primary Care Physician No DISCHARGE SUMMARY PRINCIPAL DIAGNOSES 1. Sepsis secondary to recurrent MSSA bacteremia with associated tricuspid valve endocarditis. 2. Bilateral septic pulmonary emboli of the lower lobe secondary to #1. 3. Moderate severe tricuspid regurgitation. 4. Continued IV drug abuse including heroin and amphetamine. 5. Anxiety and depression. 6. Normocytic anemia. 7. Medical noncompliance. 8. Mild hypotension, medication-induced. 9. Severe protein malnutrition. DISCHARGE DIAGNOSIS Hepatitis C, untreated. SURVEILLANCE ANALYST(S) Dr. Taylor, Infectious Disease. PROCEDURE(S) 1. Chest x-ray on March 19, 2017, with right lung infiltrate. 2. CT scan abdomen and pelvis without contrast on March 19, 2017, with multifocal peripheral opacities in left lung base. They are small and peripheral, and they are a concern for possible septic emboli. There is splenomegaly. No other acute findings. HOSPITAL COURSE Ms. Montoya is a 26-year-old female with a history of MSSA, tricuspid valve endocarditis, with associated bacteremia and septic pulmonary emboli. The patient was discharged from this facility on March 14 after being diagnosed with a injection and was placed on Rocephin by short stay. However, the patient did not present for any of her antibiotics and returned to this facility with complaints of lower back pain. The patient had recurrent bacteremia and was admitted. The patient was started back on vancomycin. ID was consulting the patient's placed on Kefzol antibiotic, confirmed recurrent MSSA bacteremia which has subsequently resolved with negative cultures on March 20, 2017. The patient's associated sepsis was resolved. The patient has been encouraged strongly about myself, Infectious Disease, Social Work, and care management through [facility], but she is not interested in getting treatment for drug use, and she states [facility] is too far away. I have informed the patient that she is likely to because of her infection if it does not get treated, and she seems disinterested in this finding. I have already discussed this recently with Dr. Li who saw her for her Unit #: [id number] #: [id number] Patient: ANIKA MONTOYA withdrawal since she qualified for inpatient psychiatric care. However, if she does not, unfortunately our only option is to proceed with IV antibiotics with short stay. The patient is very high risk for admission and high risk for mortality given her noncompliance. CONDITION ON DISCHARGE Stable. Again, high risk for admission. DISCHARGE STATUS I anticipate discharge home or short stay. DISCHARGE MEDICATIONS Rocephin 2 grams IV daily through April 18, 2017 DISCHARGE INSTRUCTIONS The patient was instructed to refrain from any further tobacco use or illicit drug use. She can increase activities as tolerated. The patient needs repeat BMP, CBC, (1) __ Dr. Gustafson. Any change in this discharge plan will be dictated (2) __. Dictated by... Libra Veliz M.D. RO/jeremaih TD: 03/23/2017 10:13 JOB #: [id number] DISCHARGE SUMMARY Page 1 of 1 X Libra Veliz MD X DISCHARGE SUMMARY
--- NOTE | ~2017-03-19 | DS ---
Unit #: [id number] #: [id number] Patient: ANIKA MONTOYA [id number] [address] [address] [id number] I MR#: [id number] NAME: ANIKA MONTOYA ROOM: 56 Age: 26 Sex: F Admission Date: 03/19/2017 : 1990 Discharge Date: 03/22/2017 Attending Physician: Libra Veliz M.D. Primary Care Physician: Primary Care Physician No DISCHARGE SUMMARY ADDENDUM REPORT ADDITIONAL HOSPITAL COURSE The patient again continues to refuse [facility]; however, she is interested in outpatient treatment at [facility] and this is currently being arranged. The patient is agreeable to [facility] transportation to and from short stay and the patient has been provided vouchers for this. She will, otherwise, be discharged home as previously noted. Time spent on discharge today, thirty-four minutes. Dictated by... Libra Veliz M.D. RO/nataliya TD: 03/23/2017 10:48 JOB #: [id number] DISCHARGE SUMMARY Page 1 of 1 X Libra Veliz MD X DISCHARGE SUMMARY
--- NOTE | ~2017-03-19 | CR72 ---
[facility] A Service of [facility] & [facility] RADIOLOGY TEXT RESULTS PATIENT: ANIKA MONTOYA LOCATION: [place] [address] : [birth year] UNIT #: [id number] AGE: [address]: Libra Veliz MD SEX: F ORDER DR: [id number] [facility] [address] [facility]. [address] [id number] MR#: [id number] Acc #: [id number] NAME: ANIKA MONTOYA : 1990 SEX: F STUDY DATE/TIME: 03/19/2017 14:53 UNIT: [facility] ROOM: STUDY DESCRIPTION: CR Chest Single View Portable Attending Physician: Priyanka Murdock M.D. Ordering Physician: Priyanka Murdock M.D. Primary Care Physician: No Primary Care Physician MEDICAL IMAGING REPORT This report is preliminary unless electronic signature is present EXAM Portable chest HISTORY Chest pain and chest pain radiating to back, since yesterday. COMPARISON 03/09/2017 FINDINGS AP portable view of the chest demonstrates linear parenchymal opacity right lung base could represent some focal atelectasis or early infiltrate. No effusions. Heart, mediastinum great vessels and bony thorax appear normal. No pneumothorax. Dictated by... Memo Santiago M.D. THIS IS AN ELECTRONICALLY VERIFIED REPORT Memo Santiago M.D. at 03/19/2017 10:03 PM Vasiliy TD: 03/19/2017 17:25 JOB #: [id number] MEDICAL IMAGING REPORT Page 1 of 1 COPY
--- NOTE | ~2017-03-19 | CO ---
Unit #: [id number] #: [id number] Patient: CELIA MONTOYA [id number] [address] [place], [place] [address] [id number] I MR#: [id number] NAME: CELIA MONTOYA ROOM: 567 Age: 26 Sex: F Admission Date: 03/19/2017 : 1990 Attending Physician: Libra Veliz M.D. Primary Care Physician: Primary Care Physician No Consultation Date: 03/21/2017 CONSULTATION REPORT REASON FOR CONSULTATION Followup. DISCUSSION Ms. Celia Montoya is a 26-year-old white female, seen in room 567 bed 1 on 03/21/2017. The patient diagnosed with endocarditis and history of polysubstance abuse. Currently, receiving IV antibiotic treatment. The patient is sad, depressed withdrawn, isolative, guarded. The patient reported still having lot of problem with the anxiety and trouble sleeping. The patient denied any suicidal or homicidal ideation. Denied any psychotic symptom, but sad, depressed, and withdrawn. The patient's vital signs; temperature 98.2, pulse 89, respirations 21, blood pressure 104/67, oxygen saturation 98%. REVIEW OF SYSTEMS Complete review of system is unremarkable. MENTAL STATUS EXAMINATION General appearance, the patient dressed in hospital attire, lying comfortably in bed. Attention span and concentration, poor. Speech, slow in volume. Answering questions in single word. Oriented in place and person. Mood and affect; sad, depressed, withdrawn, flat. Thought process, coherent. Thought content, the patient denied any suicidal or homicidal ideation. Denied any psychotic symptom. Recent and remote memory, fair. Language, intact. Fund of knowledge, fair. Insight and judgment, fair to slightly impaired. DIAGNOSES Psychiatric: Opioid use disorder, severe, F11.20; cannabis abuse disorder, moderate, F12.20; major depressive disorder, recurrent, severe, F33.2. ASSESSMENT AND PLAN 1. Supportive psychotherapy and psychoeducation provided to the patient. 2. Educated about benefits and side effects of medication and course and prognosis of illness. 3. Advised to continue with current medication. If needed, consider further adjustment of medication. We will continue to follow. Please feel free to call if any questions telephone #[phone]. Also informed the patient about going to a drug rehab program 30 day, but the patient refused at this time. Dictated by... Unit #: [id number] #: [id number] Patient: CELIA MONTOYA M.D. SZC/reuben TD: 03/22/2017 17:58 JOB #: [id number] CONSULTATION REPORT Page 1 of 1 X Ellis Li MD CONSULTATION REPORT
--- NOTE | ~2017-03-19 | HP ---
Unit #: [id number] #: [id number] Patient: ANIKA MONTOYA [id number] [facility]. [place], [place] [address] [id number] MR#: [id number] NAME: ANIKA MONTOYA ROOM: 77407 Age: 26 Sex: F Admission Date: 03/19/2017 : 1990 Attending Physician: Kelli Lara M.D. Primary Care Physician: Primary Care Physician No HISTORY AND PHYSICAL CHIEF COMPLAINT Low back pain HISTORY OF PRESENT ILLNESS The patient is a 26-year-old female with past medical history of septic pulmonary emboli, MSSA tricuspid valve endocarditis, IV drug use, hepatitis C who presented to the emergency department for evaluation of the above. Of note, the patient was hospitalized at [facility] March 09 through March 14, 2017, secondary to Methicillin-sensitive Staph aureus tricuspid valve endocarditis. She also had septic pulmonary emboli bilaterally, presumably MSSA. She was discharged home on Rocephin. She was to get this as an outpatient daily through May 03, 2017. The patient states that she has not made it to short stay for antibiotics. Yesterday, she developed pain in the right flank. She describes a "stabbing." She denies urinary symptoms. No chest pain. She has had an occasional cough. She has had chills and undocumented fever. She continues to use IV drugs with the last use being yesterday. In the emergency department, temperature has reached 102.4, pulse 158, respirations 20, blood pressure 124/80, oxygen saturation 100% on room air. CT of the abdomen and pelvis shows multifocal lung opacities concerning for septic emboli. Urinalysis shows findings concerning for possible urinary tract infection. Lactic acid is 0.9. White blood cell count is 14.2. She was given Vancomycin and Rocephin in the emergency department as well as Toradol, Zofran and 2 liters of normal saline. She is being admitted to [facility] for evaluation and further treatment. PAST MEDICAL HISTORY 1. Admission to [facility] March 09 through March 14, 2017, for sepsis secondary to Methicillin sensitive Staph aureus tricuspid valve endocarditis. She also had bilateral septic pulmonary emboli. A 2-D echocardiogram was done on March 10, 2017, that showed an ejection fraction of 45-50% with generalized hypokinesis of the left ventricle noted. [id number] tricuspid regurgitation was noted. A moderate size non mobile vegetation of the anterior leaflet of the tricuspid valve was noted. Right ventricular systolic pressure was 36 mmHg. The patient also underwent an MRI of the lumbar spine with and without contrast on March 11, 2017, that showed no evidence of diskitis, osteomyelitis or Unit #: [id number] #: [id number] Patient: ANIKA MONTOYA epidural abscess. She was discharged home to receive Rocephin in short stay through April 23, 2017. She has not received any antibiotics in short stay. 2. Hepatitis C. 3. Right upper extremity cellulitis. PAST SURGICAL HISTORY 1. Excision of tumor right ear. 2. Bilateral tubal ligation. SOCIAL HISTORY The patient is living with her cousin. She has a history of IV drug use including methamphetamine and heroin with last use being yesterday. She continues to smoke cigarettes as well. She denies alcohol use. FAMILY HISTORY Notable for diabetes. Is notable for her mot ALLERGIES Sulfa and penicillin HOME MEDICATIONS Per the discharge summary from March 14 include Rocephin. Home medications will need to be reviewed and verified. REVIEW OF SYSTEMS A complete review of systems is negative except as indicated in the HPI. DIAGNOSTIC STUDIES CARDIOLOGY: EKG showed sinus tachycardia with a rate of 147 beats per minute. IMAGING: Chest x-ray shows an opacity involving the right base. CT of the abdomen and pelvis shows multifocal lung opacities concerning for septic emboli. LABORATORY: Troponin is less than 0.05. Urine toxicology screen is positive for amphetamines and opiates. Urinalysis notable for 1+ leukocyte esterase, 1+ protein, 3+ blood with 5-10 red blood cells, 10-25 white blood cells, 1+ bacteria. Lactic acid is 0.9. Comprehensive metabolic panel notable for a sodium of 131, chloride is 97, glucose 115. AST and ALT are 58 and 84 respectively. Lipase is 18, magnesium is 1.7. Arterial blood gas shows pH of 7.509, pCO2 of 30.8, pO2 of 88.1 on room air. INR is 1.2. Complete blood count notable for a white blood cell count of 14.2, hemoglobin and hematocrit 10 and 29 respectively. Blood cultures from March 12, 2017, showed no growth after five days x2. PHYSICAL EXAMINATION VITAL SIGNS: Temperature 99.8, but did reach 102.4, pulse 158, respirations 20, blood pressure 124/80. Oxygen saturation 100% on room air. GENERAL: The patient is a female who is awake and alert, in no acute distress. HEENT: The head is atraumatic. Dentition is poor. NECK: Supple. Trachea is midline. CARDIOVASCULAR: Tachycardia in the 120s. LUNGS: Relatively clear to auscultation bilaterally with no increased work Unit #: [id number] #: [id number] Patient: ANIKA MONTOYA of breathing. ABDOMEN: Soft, nontender, with bowel sounds present in all four quadrants. EXTREMITIES: Nontender with no pedal edema. NEUROLOGIC: The patient is awake and alert. She follows commands. PSYCHIATRIC: The patient demonstrates poor judgment and insight. SKIN: Of examined areas is warm and dry. ASSESSMENT The patient is a 26-year-old female with: 1. Sepsis. 2. Septic pulmonary emboli. 3. History of MSSA tricuspid valve endocarditis, noncompliant with outpatient Rocephin. 4. Possible urinary tract infection. 5. IV drug use with last use yesterday. 6. Hyponatremia. The patient's sodium has been as low as 133 on March 08, 2017; it is 131 today. 7. Transaminitis likely secondary to hepatitis C. 8. Congestive heart failure with ejection fraction of 45-50% noted on echocardiogram March 10, 2017. 9. Hepatitis C. 10. Tobacco abuse. PLAN 1. Admit to an intermediate level. 2. Regular diet as tolerated. 3. Normal saline at 100 mL/hour. 4. Blood cultures x2. 5. Vancomycin IV and Rocephin IV for septic emboli and endocarditis pending further workup. 6. Sepsis protocol with repeat lactic acid. 7. Consult Dr. Altamirano regarding endocarditis and septic emboli. 8. Urine culture and sensitivity on urine in lab. 9. Serial cardiac enzymes. 10. workforce management manager/social work consult regarding IV drug use. 11. Opiate withdrawal protocol. 12. Tylenol p.r.n. 13. Toradol p.r.n. 14. Zofran p.r.n. 15. Repeat labs in the morning. 16. Additional workup and consultants based on above. 17. Sequential compression devices for deep venous thrombosis prophylaxis. Dictated by David Rojo/lindsey TD: 03/19/2017 18:42 JOB #: [id number] Unit #: [id number] #: [id number] Patient: ANIKA MONTOYA HISTORY AND PHYSICAL Page 1 of 1 X Kelli Lara MD X HISTORY AND PHYSICAL
--- NOTE | ~2017-03-19 | CT4 ---
[facility] A Service of [facility] & [facility] RADIOLOGY TEXT RESULTS PATIENT: ANIKA MONTOYA LOCATION: [facility] [place] [facility] 567-01 : [birth year] UNIT #: [id number] AGE: [address]: Libra Veliz MD SEX: F ORDER DR: [id number] [facility]. [place], [place] [address] [id number] MR#: [id number] Acc #: [id number] NAME: ANIKA MONTOYA : 1990 SEX: F STUDY DATE/TIME: 03/19/2017 15:33 UNIT: [facility] ROOM: STUDY DESCRIPTION: CT Abd and Pelv Wo Cont Attending Physician: Priyanka Murdock M.D. Ordering Physician: Priyanka Murdock M.D. Primary Care Physician: Primary Care Physician No MEDICAL IMAGING REPORT This report is preliminary unless electronic signature is present EXAM CT abdomen and pelvis without contrast HISTORY Left-sided low back pain for 2 days. History of drug abuse. COMPARISON CT chest 03/10/2017 FINDINGS Axial images performed through the abdomen and pelvis without contrast. Multiplanar reconstructed images reviewed. This CT exam was performed with one or more of the following radiation dose reduction techniques: Automatic exposure control, adjustment of mA and/or kV according to patient size, and iterative reconstruction. ABDOMEN: Peripheral airspace disease lateral aspect right lower lobe as well as some left infrahilar infiltrate. Additional parenchymal opacity seen in the posteromedial aspect of the right lower lobe and also within the inferior aspect left lower lobe. Again, these are most likely infectious in etiology. These potentially could represent septic emboli. Liver, spleen, gallbladder, pancreas, kidneys and adrenal glands unremarkable, except for splenomegaly. Study is limited due to lack of contrast. The visualized GI tract unremarkable. No free air or free fluid. PELVIS: Bladder, uterus, adnexa unremarkable. Osseous structures unremarkable except for posterior disc bulging L4-5, L5-S1. IMPRESSION 1. Multifocal parenchymal opacities in both lung bases. These appear to be small and peripheral, with the exception of a sizeable area of consolidation right lower lobe. Given their peripheral distribution, STS. [facility] A Service of [facility] & [facility] RADIOLOGY TEXT RESULTS PATIENT: ANIKA MONTOYA LOCATION: [facility] [place] [facility] 56- : [birth year] UNIT #: [id number] AGE: [address]: Libra Veliz MD SEX: F ORDER DR: this raises a concern for possible septic emboli. 2. Evaluation of the abdominal and pelvic structures somewhat limited due to lack of IV contrast. There is splenomegaly, but otherwise no acute intraabdominal or intrapelvic pathology identified. Splenomegaly may be related to chronic disease. Dictated by... Memo Santiago M.D. THIS IS AN ELECTRONICALLY VERIFIED REPORT Memo Santiago M.D. at 03/19/2017 10:03 PM SHANIA/satish TD: 03/19/2017 17:44 JOB #: [id number] MEDICAL IMAGING REPORT Page 1 of 1 COPY
--- NOTE | ~2017-03-19 | CR72 ---
[facility] A Service of [facility] RADIOLOGY TEXT RESULTS PATIENT: ANIKA MONTOYA LOCATION: [facility] 5602-11 : [birth year] UNIT #: [id number] AGE: [address]: Libra Veliz MD SEX: F ORDER DR: [id number] [facility] [address] [facility]. [place], [place] [address] [id number] I MR#: [id number] Acc #: [id number] NAME: ANIKA MONTOYA : 1990 SEX: F STUDY DATE/TIME: 03/20/2017 09:47 UNIT: [facility] ROOM: [facility] STUDY DESCRIPTION: CR Chest Single View Portable Attending Physician: Libra Veliz M.D. Ordering Physician: Lbira Veliz M.D. Primary Care Physician: No Primary Care Physician MEDICAL IMAGING REPORT This report is preliminary unless electronic signature is present EXAM Chest portable 03/20/2017 at 0947 hours CLINICAL HISTORY 26-year-old with shortness of air and elevated heart rate today. Central line placement. COMPARISON 03/19/2017 FINDINGS Portable upright chest demonstrates lower lung volumes. Heart size is mildly prominent likely exaggerated by the lower lung volumes. There is basilar vascular crowding but no definite edema, pneumonia, or effusion. There is a right IJ catheter with tip projecting at the junction of SVC and right atrium. IMPRESSION 1. Lower lung volume film with mild prominence of the cardiac silhouette. There is basilar vascular crowding but no definite edema, pneumonia, or effusion. 2. Right central venous catheter tip at the junction of SVC and right atrium. No pneumothorax. Dictated by... Tammy Bright M.D. THIS IS AN ELECTRONICALLY VERIFIED REPORT Tammy Bright M.D. at 03/20/2017 4:29 PM LYNDA/melvin TD: 03/20/2017 11:44 [facility] A Service of [facility] RADIOLOGY TEXT RESULTS PATIENT: ANIKA MONTOYA LOCATION: [facility] 5602-11 : [birth year] UNIT #: [id number] AGE: [address]: Libra Veliz MD SEX: F ORDER DR: JOB #: [id number] MEDICAL IMAGING REPORT Page 1 of 1 COPY
--- NOTE | ~2017-03-19 | CO ---
Unit #: [id number] #: [id number] Patient: CELIA MONTOYA [id number] [address] [id number] I MR#: [id number] NAME: CELIA MONTOYA ROOM: 567 Age: 26 Sex: F Admission Date: 03/19/2017 : 1990 Attending Physician: Libra Veliz M.D. Primary Care Physician: Primary Care Physician No Consultation Date: 03/20/2017 CONSULTATION REPORT REASON FOR CONSULTATION Followup. DISCUSSION Ms. Celia Montoya is a 26-year-old female, seen in room 567, bed 1 on 03/20/2017. The patient reports making progress, feeling better. The patient diagnosed with opioid use disorder, severe; cannabis abuse disorder, moderate; major depressive disorder, recurrent, severe. The patient is tolerating medication fairly well. Denied any psychotic symptom or any suicidal ideation. The patient's vital signs; temperature 98.4, heart rate 86, respiratory rate 16, blood pressure 102/61, and oxygen saturation 99%. REVIEW OF SYSTEMS Complete review of system is unremarkable. MENTAL STATUS EXAMINATION General appearance; the patient dressed casually, lying comfortably. Attention span and concentration, fair. Speech, regular rate and coherent. Oriented in time, place, and person. Mood and affect, sad and dysphoric. Thought process, coherent. Thought content, the patient denied any thoughts of harming self or others or any psychotic symptom. Recent and remote memory, fair. Language, intact. Fund of knowledge, fair. Insight and judgment, fair to slightly impaired. DIAGNOSES Psychiatric: Opioid use disorder, severe, F11.20; cannabis abuse disorder, moderate, F12.20; major depressive disorder, recurrent, severe, F33.2. ASSESSMENT/PLAN 1. Supportive psychotherapy and psychoeducation provided to the patient. 2. Educated about benefits and side effects of medication and course and prognosis of illness. 3. Advised to continue with current medication. If needed, consider further adjustment of medication. Dictated by... Ellis Li M.D. DAMASO/reuben Unit #: [id number] #: [id number] Patient: CELIA MONTOYA TD: 03/21/2017 07:57 JOB #: [id number] CONSULTATION REPORT Page 1 of 1 X Ellis Li MD CONSULTATION REPORT
--- NOTE | ~2017-03-19 | EKG ---
PATIENT: ANIKA MONTOYA UNIT #: [id number] Ventricular Rate: 147 BPM Atrial Rate: 147 BPM P-R Interval: 128 ms QRS Duration: 74 ms Q-T Interval: 246 ms QTC Calculation(Bezet): 384 ms P [place]: 49 degrees Calculated R [place]: -126 degrees Calculated T [place]: 37 degrees Diagnosis Line: Sinus tachycardia Diagnosis Line: Possible Left atrial enlargement Diagnosis Line: Right superior axis deviation Diagnosis Line: Pulmonary disease pattern Diagnosis Line: Right ventricular hypertrophy Diagnosis Line: Abnormal ECG Diagnosis Line: When compared with ECG of 09-MAR-2017 00:03, Diagnosis Line: No significant change was found Diagnosis Line: Confirmed by STEVEN GILMORE MD ([id number]) on 03/21/2017 Diagnosis Line: 10:53:32 PM INTERPRETING MD: MANDO PAUL
[~2017-03-19 14:04] MED LIST changes: +ROCEPHIN10 GM IV
[2017-03-19 14:54] LABS: POC - CKMB 1.6 ng/mL (0.0-7.9); POC - TROPONIN <0.05 ng/mL (<=0.05)
[2017-03-19 14:55] LABS: BASOPHIL# 0.1 X10e3 (0-0.3); BASOPHIL% 0.5 % (0-2.5); DIFF IND NO; EOSINOPHIL% 0.2 % (0.0-7.0); LYMPHOCYTE# 1.4 X10e3 (1.0-3.5); LYMPHOCYTE% 9.8 % (17.0-45.0); MEAN CELL VOLUME 77.9 FL (83-96); MEAN CORPUSCULAR HGB CONC 34.6 g/dL (30-36); MEAN PLATELET VOLUME 6.4 FL (6.5-11.5); MONOCYTE# 0.7 X10e3 (0-1.0); MONOCYTE% 4.6 % (3.0-12.0); NEUTROPHIL# 12.1 X10e3 (1.5-7.1); NEUTROPHIL% 84.9 % (40-75); PLATELET COUNT 343 X10e3 (140-420); RED BLOOD COUNT 3.73 X10e (3.90-5.30); RED CELL DISTRIBUTION WIDTH 16.2 % (11.0-15.5); WHITE BLOOD COUNT 14.2 X10e3 (4.0-10.5)
[2017-03-19 15:08] LABS: INR 1.2; PARTIAL THROMBOPLASTIN TIME 28.2 SECONDS (23.5-31.3); PROTHROMBIN TIME (PATIENT) 12.6 SECONDS (10.0-11.7)
[2017-03-19 15:09] LABS: ARTERIAL BLD GAS O2 SATURATION 95.5 % (90.0-100.0); ARTERIAL BLOOD GAS CARBOXY HB 1.4 %sat (0.0-9.0); ARTERIAL BLOOD GAS HCO3 24.5 mmol/L; ARTERIAL BLOOD GAS MET HB 1.3 %sat (0.0-2.0); ARTERIAL BLOOD GAS PCO2 30.8 mmHg (35.0-45.0); ARTERIAL BLOOD GAS PO2 88.1 mmHg (80.0-100); ARTERIAL BLOOD GAS pH 7.509 (7.350-7.450)
[2017-03-19 15:10] LABS: ARTERIAL BLOOD GAS ALLEN TEST NORMAL; ARTERIAL BLOOD GAS ART SITE RIGHT RADIAL; ARTERIAL DRAW? YES
[2017-03-19 15:15] LABS: ALBUMIN SERUM 2.9 g/dL (3.5-5.0); BILIRUBIN, DIRECT 0.3 mg/dL (0.0-0.2); BILIRUBIN,INDIRECT 0.4 mg/dL (0.0-0.9); BILIRUBIN,TOTAL 0.7 mg/dL (0.2-2.0); BUN/CREATININE RATIO 21.42; CALCIUM SERUM 8.8 mg/dL (8.4-10.2); CREATININE SERUM 0.7 mg/dL (0.6-1.4); GLOM FILT RATE Estimated 117.9 mL/min (>60); MAGNESIUM 1.7 mg/dL (1.6-3.0); POTASSIUM 3.6 mmol/L (3.5-5.1); PROTEIN TOTAL SERUM 7.8 g/dL (6.0-8.3)
[2017-03-19 15:33] LABS: URINE SOURCE CLEAN CATCH
[2017-03-19 15:38] LABS: URINE APPEARANCE TURBID; URINE BLOOD 3+ (NEG); URINE COLOR DK YELLOW; URINE GLUCOSE NEG (NEG); URINE KETONE TRACE (NEG); URINE LEUKOCYTE ESTERASE 1+ (NEG); URINE NITRATE NEG (NEG); URINE PROTEIN 1+ (NEG); URINE SPECIFIC GRAVITY 1.024 (1.003-1.035)
[2017-03-19 15:40] LABS: CULTURE INDICATED? YES; URINE BACTERIA AUWI 1+ (NEGATIVE); URINE SQUAMOUS EPITHELIAL CELL MOD /[HPF]
[2017-03-19 15:44] LABS: URINE BILIRUBIN NEG (NEG)
[2017-03-19 15:46] LABS: U HYALINE CASTS AUWI 0-2 /[LPF]; URINE MUCUS PRESENT
[2017-03-19 15:53] LABS: AMPHETAMINE POS (NEG); BARBITURATES NEG (NEG); BENZODIAZEPINES NEG (NEG); COCAINE NEG (NEG); MARIJUANA NEG (NEG); OPIATES POS (NEG); TRICYCLIC ANTIDEPRESSANTS NEG (NEG); U METHADONE NEG (NEG)
[2017-03-19 16:27] LABS: POC - CKMB <1.0 ng/mL (0.0-7.9); POC - TROPONIN <0.05 ng/mL (<=0.05)
[2017-03-19 22:39] LABS: %MB 1.7 % (0.0-4.0); MB 1.5 ng/ml
[2017-03-20 03:51] LABS: BASOPHIL# 0.1 X10e3 (0-0.3); BASOPHIL% 0.7 % (0-2.5); EOSINOPHIL# 0.1 X10e3 (0-0.7); EOSINOPHIL% 1.5 % (0.0-7.0); HEMATOCRIT 26.6 % (35.0-45.0); LYMPHOCYTE# 1.8 X10e3 (1.0-3.5); LYMPHOCYTE% 21.3 % (17.0-45.0); MEAN CELL VOLUME 79.3 FL (83-96); MEAN CORPUSCULAR HEMOGLOBIN 26.8 PG (28-34); MEAN CORPUSCULAR HGB CONC 33.8 g/dL (30-36); MEAN PLATELET VOLUME 6.2 FL (6.5-11.5); MONOCYTE# 0.6 X10e3 (0-1.0); MONOCYTE% 6.6 % (3.0-12.0); NEUTROPHIL# 6.1 X10e3 (1.5-7.1); NEUTROPHIL% 69.9 % (40-75); PLATELET COUNT 194 X10e3 (140-420); RED BLOOD COUNT 3.35 X10e (3.90-5.30); RED CELL DISTRIBUTION WIDTH 16.5 % (11.0-15.5); WHITE BLOOD COUNT 8.7 X10e3 (4.0-10.5)
[2017-03-20 03:52] LABS: DIFF IND NO
[2017-03-20 04:27] LABS: MAGNESIUM 1.8 mg/dL (1.6-3.0)
[2017-03-21 06:17] LABS: BASOPHIL% 0.4 % (0-2.5); EOSINOPHIL# 0.2 X10e3 (0-0.7); EOSINOPHIL% 2.2 % (0.0-7.0); HEMATOCRIT 24.1 % (35.0-45.0); LYMPHOCYTE# 2.1 X10e3 (1.0-3.5); LYMPHOCYTE% 27.2 % (17.0-45.0); MEAN CORPUSCULAR HEMOGLOBIN 26.3 PG (28-34); MEAN CORPUSCULAR HGB CONC 33.3 g/dL (30-36); MEAN PLATELET VOLUME 6.7 FL (6.5-11.5); MONOCYTE# 0.7 X10e3 (0-1.0); MONOCYTE% 8.7 % (3.0-12.0); NEUTROPHIL# 4.8 X10e3 (1.5-7.1); NEUTROPHIL% 61.5 % (40-75); PLATELET COUNT 290 X10e3 (140-420); RED BLOOD COUNT 3.05 X10e (3.90-5.30); WHITE BLOOD COUNT 7.8 X10e3 (4.0-10.5)
[2017-03-21 06:20] LABS: ALBUMIN SERUM 1.9 g/dL (3.5-5.0); ALKALINE PHOSPHATASE 64 U/L (32-92); ALT (SGPT) 62 U/L (10-40); AST (SGOT) 57 U/L (10-42); BLOOD UREA NITROGEN 13 mg/dL (9-23); BUN/CREATININE RATIO 18.57; CALCIUM SERUM 8.1 mg/dL (8.4-10.2); CARBON DIOXIDE 24 mmol/L (22-31); CHLORIDE 107 mmol/L (100-111); CREATININE SERUM 0.7 mg/dL (0.6-1.4); GLOM FILT RATE Estimated 117.9 mL/min (>60); GLUCOSE FASTING 112 mg/dL (70-110); POTASSIUM 3.6 mmol/L (3.5-5.1); PROTEIN TOTAL SERUM 5.7 g/dL (6.0-8.3); SODIUM 138 mmol/L (135-145)
[2017-03-21 06:22] LABS: BILIRUBIN,TOTAL <0.1 mg/dL (0.2-2.0)
[2017-03-21 06:23] LABS: DIFF IND NO
== END 2017-03-22 18:42 | disposition home or self-care (01) | DRG 871 ==
LOC: CED 14:04 → C5C 17:40 → CEDOF 17:40 → CED 17:58 → C5C 20:18 → CEDOF 20:18 → C5C 20:18
PROVIDERS: Family Medicine; Internal Medicine; Student in an Organized Health Care Education/Training Program
PROC: 05HM33Z Insertion of Infusion Device into Right Internal Jugular Vein, Percutaneous Approach (ICD-10-PCS; principal; 2017-03-20)
DX: A41.01 Sepsis due to Methicillin susceptible Staphylococcus aureus (principal); I26.90 Septic pulmonary embolism without acute cor pulmonale; E43 Unspecified severe protein-calorie malnutrition; F33.2 Major depressive disorder, recurrent severe without psychotic features; E87.1 Hypo-osmolality and hyponatremia; I01.1 Acute rheumatic endocarditis; I95.9 Hypotension, unspecified; F11.20 Opioid dependence, uncomplicated; F41.9 Anxiety disorder, unspecified; Z91.19 Patient's noncompliance with other medical treatment and regimen; F12.20 Cannabis dependence, uncomplicated; F17.210 Nicotine dependence, cigarettes, uncomplicated; Z71.6 Tobacco abuse counseling; Z83.3 Family history of diabetes mellitus; Z88.0 Allergy status to penicillin; Z88.2 Allergy status to sulfonamides; Z86.19 Personal history of other infectious and parasitic diseases
CPT/HCPCS: 36415; 36600; 71010; 74176; 80048; 80053; 80076; 80307; 81003; 82550; 82553; 82803; 83605; 83690; 83735; 84484; 84703; 85025; 85610; 85730; 87040; 87077; 87086; 87186; 93005; 96361; 96365; 96367; 96375; 99285; J0690; J0696; J1885; J2405; J3370